=== PATIENT | male | born 1945 | race Caucasian/White ===

== ENCOUNTER 2018-12-03 11:03 | Emergency (ER) | payer MEDICARE | END 2018-12-03 11:48 | disposition home or self-care (01) | LOC: MADERS 11:03 | DX: L03.116 Cellulitis of left lower limb (principal); M10.9 Gout, unspecified; F32.9 Major depressive disorder, single episode, unspecified; E78.5 Hyperlipidemia, unspecified; I10 Essential (primary) hypertension; F17.200 Nicotine dependence, unspecified, uncomplicated; Z79.899 Other long term (current) drug therapy; Z79.82 Long term (current) use of aspirin | CPT/HCPCS: 99283 ==